=== PATIENT | female | born 1995 | race African-American/Black ===

== ENCOUNTER 2017-01-13 09:42 | Emergency (ER) | payer SELFPAY ==
[~2017-01-13] VITALS: Ht 165.1 cm; Wt 56.7 kg
[2017-01-13 09:53] VITALS: BP 117/69
== END 2017-01-13 11:15 | disposition home or self-care (01) ==
LOC: ER 09:42
DX: S29.012A Strain of muscle and tendon of back wall of thorax, initial encounter (principal); M41.9 Scoliosis, unspecified; V49.59XA Passenger injured in collision with other motor vehicles in traffic accident, initial encounter; Y93.89 Activity, other specified; Y99.8 Other external cause status; Y92.410 Unspecified street and highway as the place of occurrence of the external cause
CPT/HCPCS: 72070